=== PATIENT | female | born 1975 ===

== ENCOUNTER 2022-02-10 18:30 | Inpatient (IN) | payer SELFPAY ==
[2022-02-10] MEDS ORDERED: dexAMETHasone 4 MG/ML VIAL IV ONE (18:58)
[2022-02-10] MEDS ORDERED: ACETAMINOPHEN 325 MG TAB PO ONE (18:59)
[2022-02-10] MEDS ORDERED: SODIUM CHLORIDE 0.9% 1000 ML 2,000 ML IV ONE (18:59)
[2022-02-10] MEDS ORDERED: SODIUM CHLORIDE 0.9% 1000 ML 1,000 ML IV ONE (18:59)
[2022-02-10] MEDS ORDERED: ONDANSETRON 4 MG/2 ML INJ IV ONE (18:59)
--- NOTE | 2022-02-10 19:01 | Emergency Department Report ---
ED General Adult HPI - General Chief complaint: Weakness Stated complaint: DIARRHEA (X2DAYS) PUI?: Yes Time Seen by Provider: 02/10/22 18:48 Source: patient, EMS (Verbal report received from emergency medical services. E MS documentation not available at time of chart dictation ), RN notes reviewed Mode of arrival: Stretcher Limitations: No Limitations, Physical Limitation - History of Present Illness Initial comments: The patient was evaluated in the emergency department for symptoms described in the history of present illness. He/she was evaluated in the context of the global COVID-19 pandemic, which necessitated consideration that the patient might be at risk for infection with the virus that causes COVID-19. Instit utional protocols and algorithms that pertain to the evaluation of patients at risk for COVID-19 are in a state of rapid change based on information released by regulatory bodies including the CDC and federal and state organizations. These policies and algorithms were followed during the patient's care in the emergency department. Please note that these policies, procedures and recommendations changed on a rapid basis. The patient is a 46-year-old female, who lives in [place], who denies chronic medical conditions, who reports that she is not , who reports being vaccinated against COVID-19, who is currently traveling to [place] (reports that she is [place] and has lived in the states for 7 years), presenting to the ER via EMS. History obtained mostly from EMS. EMS reports the patient is weak, and hypotensive in the field, with a blood pressure in the 70s, and was also found t o be hypoxic to 90%. The patient endorses generalized weakness, body aches, and diarrhea. No urinary symptoms. No recent antibiotic use. 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 -: days(s) Consistency: constant Improves with: rest Worsens with: movement - Related Data Allergies Allergy/AdvReac Type Severity Reaction Status Date / Time No Known Allergies Allergy Verified 02/10/22 18:36 ED Review of Systems ROS: Stated complaint: DIARRHEA (X2DAYS) Other details as noted in HPI Constitutional: malaise, weakness Respiratory: shortness of breath Gastrointestinal: abdominal pain, diarrhea Genitourinary: denies: dysuria Musculoskeletal: myalgia Neurological: weakness ED Physical Exam - General Limitations: Physical Limitation General appearance: alert, anxious, in distress - Head Head exam: Present: atraumatic, normocephalic - Eye Eye exam: Present: normal appearance, EOMI. Absent: nystagmus - ENT ENT exam: Present: normal exam, normal orophraynx, mucous membranes moist, normal external ear exam - Neck Neck exam: Present: normal inspection, full ROM. Absent: tenderness, menin gismus - Respiratory Respiratory exam: Present: respiratory distress, other (Pulmonary auscultation not performed secondary to lack of disposable stethoscope). Absent: stridor - Cardiovascular Cardiovascular Exam: Present: other (Cardiac auscultation not performed secondary to lack of disposable stethoscope). Absent: JVD - GI/Abdominal GI/Abdominal exam: Present: soft. Absent: distended, tenderness, guarding, rebound, rigid, pulsatile mass - Extremities Exam Extremities exam: Present: normal inspection, other (2+ pulses noted in the bi lateral upper and lower extremities. There is no palpable cord. negative Homans sign. Muscular compartments are soft. The pelvis is stable.). Absent: pedal edema, calf tenderness - Back Exam Back exam: Present: normal inspection. Absent: tenderness, CVA tenderness (R), CVA tenderness (L), paraspinal tenderness, vertebral tenderness - Neurological Exam Neurological exam: Present: alert, other (No facial droop. Tongue midline. Extraocular movements intact bilaterally. Facial sensation intact to light touch in V1, V2, V3 distribution bilaterally. 5 and a 5 strength in 4 extremities. Sensation intact to light touch in 4 extremities.) - Psychiatric Psychiatric exam: Present: anxious - Skin Skin exam: Present: warm, dry, intact, normal color. Absent: rash ED Course Vital Signs 02/10/22 02/10/22 02/10/22 18:33 18:37 21:18 Temperature 97 F L 97.8 F Pulse Rate 66 73 Respiratory 24 19 Rate Blood Pressure 70/37 100/80 [Left] O2 Sat by Pulse 90 95 100 Oximetry 02/10/22 21:21 Temperature Pulse Rate Respiratory 19 Rate Blood Pressure [Left] O2 Sat by Pulse 100 Oximetry - Reevaluation(s) Reevaluation #1: 02/10/22 19:22 Differential diagnosis, including but not limited to: Pneumonia, UTI, COVID, electrolyte derangement, dehydration Assessment and plan: 46-year-old female, presenting with hypoxia, diarrhea, hypotension, very suspicious for COVID. Place patient in isolation. Start IV fluids and steroids empirically. Place patient on supplemental oxygen. Obtain x-ray of the chest, and appropriate laboratory studies. Have recommended admission to the medical service. The patient endorses understanding. Reassess after initial diagnostics have resulted. Blood pressure currently 97 systolic. 02/10/22 20:04 Lactic acid of 3. Suspect that this is secondary to type II lactic acidosis, likely secondary to probable viral syndrome. However, will cover with antibiotics. We will admit to the hospital team. Current hospitalist, not able to accept any additional admissions. We will therefore admit to the nocturnal hospitalist team 02/10/22 20:05 Blood pressure improved, systolic 120. 02/10/22 21:34 Dr Main Marino to admit to [facility] ED Medical Decision Making - Lab Data Result diagrams: 02/10/22 19:33 02/10/22 19:33 Vital Signs 02/10/22 02/10/22 18:33 18:37 Temperature 97 F L Pulse Rate 66 Respiratory 24 Rate Blood Pressure 70/37 [Left] O2 Sat by Pulse 90 95 Oximetry Lab Results 02/10/22 02/10/22 02/10/22 Range/Units 19:00 19:33 19:33 Sodium 139 (137-145) mmol/L Potassium 3.7 (3.6-5.0) mmol/L Chloride 106.1 (98-107) mmol/L Carbon Dioxide 19 L (22-30) mmol/L Anion Gap 18 mmol/L BUN 11 (7-17) mg/dL Creatinine 0.8 (0.6-1.2) mg/dL Estimated GFR > 60 ml/min BUN/Creatinine Ratio 14 % Glucose 161 H (65-100) mg/dL Lactic Acid 3.00 H* (0.7-2.0) mmol/L Calcium 11.0 H (8.4-10.2) mg/dL Total Bilirubin 0.20 (0.1-1.2) mg/dL AST 15 (5-40) units/L ALT 15 (7-56) units/L Alkaline Phosphatase 77 (35-129) units/L Lactate Dehydrogenase 142 (91-180) units/L Total Creatine Kinase 54 (30-135) units/L Troponin T < 0.010 (0.00-0.029) ng/mL Total Protein 6.9 (6.3-8.2) g/dL Albumin 4.6 (3.9-5) g/dL Albumin/Globulin Ratio 2.0 % - Radiology Data Radiology results: report reviewed, image reviewed CHEST 1 VIEW 02/10/2022 6:31 PM INDICATION / CLINICAL INFORMATION: Acute hypoxic respiratory failure. COMPARISON: None available. FINDINGS: SUPPORT DEVICES: None. HEART / MEDIASTINUM: No significant abnormality. LUNGS / PLEURA: No significant pulmonary or pleural abnormality. No pneumothorax. ADDITIONAL FINDINGS: No significant additional findings. IMPRESSION: No acute abnormality. Signer Name: Vicente Anglin MD Signed: 02/10/2022 6:33 PM Workstation Name: [id number] Critical Care Time: Yes Critical care time in (mins) excluding proc time.: 35 Critical care attestation.: If time is entered above; I have spent that time in minutes in the direct care of this critically ill patient, excluding procedure time. ED Disposition Clinical Impression: Acute respiratory failure with hypoxia, Diarrhea, Hypotension, Suspected COVID- 19 virus infection, SIRS (systemic inflammatory response syndrome) Disposition: ADMITTED INPATIENT Is pt being admited?: Yes Does the pt Need Aspirin: No Condition: Fair
--- NOTE | 2022-02-10 19:37 | XRay Report ---
CHEST 1 VIEW 02/10/2022 6:31 PM INDICATION / CLINICAL INFORMATION: Acute hypoxic respiratory failure. COMPARISON: None available. FINDINGS: SUPPORT DEVICES: None. HEART / MEDIASTINUM: No significant abnormality. LUNGS / PLEURA: No significant pulmonary or pleural abnormality. No pneumothorax. ADDITIONAL FINDINGS: No significant additional findings. IMPRESSION: No acute abnormality. Signer Name: Vicente Anglin MD Signed: 02/10/2022 7:33 PM Workstation Name: [id number]
[2022-02-10 20:01] LABS: Alanine Aminotransferase 15 units/L (7-56); Albumin 4.6 g/dL (3.9-5); BUN/Creatinine Ratio 14; Blood Urea Nitrogen 11 mg/dL (7-17); Hemolysis Index 12
[2022-02-10] MEDS ORDERED: metroNIDAZOLE/NS 500 MG/100 ML 500 MG/100 ML BAG IV ONE (20:03)
[2022-02-10 20:07] LABS: Partial Thromboplastin Time 24.7 Sec. (24.2-36.6)
[2022-02-10 20:34] LABS: Hematocrit 50.9 % (30.3-42.9); Hemoglobin 16.7 gm/dl (10.1-14.3); Mean Corpuscular HGB Conc 33 % (30-34); Mean Corpuscular Volume 95 fl (79-97); Platelet Count 355 K/mm3 (140-440); Red Blood Count 5.36 M/mm3 (3.65-5.03); Red Cell Distribution Width 13.4 % (13.2-15.2)
[2022-02-10] MEDS ORDERED: MORPHINE 4 MG/1 ML INJ IV PRN (21:56)
[2022-02-10] MEDS ORDERED: MORPHINE 2 MG/1 ML INJ IV PRN (21:56)
[2022-02-10] MEDS ORDERED: MAGNESIUM HYDROXIDE (MOM) ORAL LIQD UDC PO PRN (21:56)
[2022-02-10] MEDS ORDERED: ACETAMINOPHEN 325 MG TAB PO PRN (21:56)
[2022-02-10] MEDS ORDERED: ONDANSETRON 4 MG/2 ML INJ IV PRN (21:56)
--- NOTE | 2022-02-10 22:09 | History and Physical Report ---
History of Present Illness Date of examination: 02/10/22 Date of admission: 02/10/2022 Chief complaint: Genralized weakness Hypotension History of present illness: 46-year-old female without any significant past medical problem visiting from [place] presenting to the emergency room today via EMS with complaints of generalized weakness, nausea and vomiting, diarrhea and hypotension . Most of the history was gotten from the ER staff. Patient was said to have had an oxygen saturation of about 90%. Patient has denied any fever or chills, no chest pain, no cough. She denies any hematuria or dysuria. She has been fully vaccinated against COVID-19. She is said to be traveling to [place] from [place]. Work-up in the emergency room today, labs are significant for slight leukocytosis of 13.1, lactic acid of 3.0. Chest x-ray shows no acute findings. Urinalysis was unremarkable. Patient had received IV fluid in the emergency room with significant improvement in her blood pressure. She has also been placed on oxygen by nasal cannula with improvement to the low oxygen saturation. She has been admitted for acute respiratory failure, gastroenteritis and lactic acidosis. Past History Past Medical History: No medical history Past Surgical History: No surgical history Social history: no significant social history Family history: no significant family history Medications and Allergies Allergies Allergy/AdvReac Type Severity Reaction Status Date / Time No Known Allergies Allergy Verified 02/10/22 18:36 Review of Systems Constitutional: weakness, no fever, no chills Ears, nose, mouth and throat: no nasal congestion, no sore throat Cardiovascular: no chest pain, no palpitations Respiratory: shortness of breath, no cough Gastrointestinal: nausea, vomiting, diarrhea Genitourinary Female: no pelvic pain, no flank pain, no dysuria, no hematuria Musculoskeletal: no neck pain, no low back pain Integumentary: no rash, no pruritis Neurological: no headaches, no confusion Psychiatric: no anxiety, no depression Endocrine: no polyphagia, no polydipsia, no polyuria, no nocturia Exam - Constitutional Vitals: Temp Pulse Resp BP Pulse Ox 97.8 F 73 19 100/80 100 02/10/22 21:18 02/10/22 21:18 02/10/22 21:21 02/10/22 21:18 02/10/22 21:21 General appearance: Present: no acute distress, well-nourished - EENT Eyes: Present: PERRL, EOM intact. Absent: scleral icterus ENT: hearing intact, clear oral mucosa, dentition normal - Neck Neck: Present: supple, normal ROM - Respiratory Respiratory effort: normal Respiratory: bilateral: CTA - Cardiovascular Rhythm: regular Heart Sounds: Present: S1 & S2. Absent: gallop, systolic murmur, diastolic murmur, rub, click - Extremities Extremities: no ischemia, pulses intact, pulses symmetrical, No edema, normal temperature, normal color, Full ROM Peripheral Pulses: within normal limits - Abdominal General gastrointestinal: Present: soft, non-tender, non-distended, normal bowel sounds. Absent: mass - Integumentary Integumentary: Present: clear, warm, dry, normal turgor. Absent: rash - Musculoskeletal Musculoskeletal: strength equal bilaterally - Psychiatric Psychiatric: appropriate mood/affect, intact judgment & insight, memory intact, cooperative - Neurologic Neurologic: CNII-XII intact, no focal deficits, moves all extremities HEART Score - HEART Score Troponin: Troponin T < 0.010 ng/mL (0.00-0.029) 02/10/22 19:33 Results - Labs CBC & Chem 7: 02/10/22 19:33 02/10/22 19:33 Labs: Abnormal lab results 02/10/22 02/10/22 02/10/22 Range/Units 19:33 19:33 19:33 WBC 13.1 H (4.5-11.0) K/mm3 RBC 5.36 H (3.65-5.03) M/mm3 Hgb 16.7 H (10.1-14.3) gm/dl Hct 50.9 H (30.3-42.9) % D-Dimer 974.33 H (0-234) ng/mlDDU Carbon Dioxide 19 L (22-30) mmol/L Glucose 161 H (65-100) mg/dL Lactic Acid (0.7-2.0) mmol/L Calcium 11.0 H (8.4-10.2) mg/dL 02/10/22 Range/Units 19:33 WBC (4.5-11.0) K/mm3 RBC (3.65-5.03) M/mm3 Hgb (10.1-14.3) gm/dl Hct (30.3-42.9) % D-Dimer (0-234) ng/mlDDU Carbon Dioxide (22-30) mmol/L Glucose (65-100) mg/dL Lactic Acid 3.00 H* (0.7-2.0) mmol/L Calcium (8.4-10.2) mg/dL Assessment and Plan - Patient Problems (1) Acute respiratory failure with hypoxia Current Visit: Yes Status: Acute Plan to address problem: Etiology is unclear. Patient has been started on empiric IV antibiotics and also placed on oxygen by nasal cannula. We will keep O2 saturation greater or equal to 92%. Patient is also being screened for COVID-19. We will request pulmonology evaluation. (2) Diarrhea Current Visit: Yes Status: Acute Plan to address problem: Etiology is unclear. Patient placed on IV fluid. She has also been placed on empiric IV antibiotics for possible underlying infection. (3) Hypotension Current Visit: Yes Status: Acute Plan to address problem: Possibly secondary to volume loss. Placed on IV fluid. We will monitor vital signs closely. (4) Suspected COVID-19 virus infection Current Visit: Yes Status: Acute Plan to address problem: Will await COVID-19 testing. (5) DVT prophylaxis Current Visit: Yes Status: Acute Plan to address problem: Patient placed on subcutaneous heparin. (6) Full code status Current Visit: Yes Status: Acute Plan to address problem: Patient is full code.
[2022-02-10 22:45] LABS: Bilirubin,Urine NEG (Negative); Blood,Urine LG (Negative); Color,Urine Straw (Yellow); Hyaline Casts,Urine 8 /LPF; Mucus,Urine FEW /HPF; Protein,Urine <15 mg/dL mg/dL (Negative); Urobilinogen,Urine < 2.0 mg/dL (<2.0)
[2022-02-11] MEDS: metroNIDAZOLE/NS 500 MG/100 ML 500 MG/100 ML BAG IV SCH ×3 (03:09→20:15)
[2022-02-11] MEDS: SODIUM CHLORIDE 0.9% 1000 ML 1,000 ML IV SCH ×3 (03:10→20:15)
[2022-02-11] MEDS: HEPARIN 5,000 UNIT/1 ML VIAL SUB-Q SCH ×2 (06:22→21:01)
[2022-02-11 07:38] LABS: Basophils % (Auto) 0.4 % (0.0-1.8); Eosinophils % (Auto) 0.1 % (0.0-4.3); Hematocrit 39.3 % (30.3-42.9); Lymphocytes # (Auto) 0.9 K/mm3 (1.2-5.4); Lymphocytes % (Auto) 8.5 % (13.4-35.0); Mean Corpuscular HGB Conc 33 % (30-34); Mean Corpuscular Volume 94 fl (79-97); Monocytes # (Auto) 0.3 K/mm3 (0.0-0.8); Monocytes % (Auto) 2.4 % (0.0-7.3); Platelet Count 265 K/mm3 (140-440); Red Blood Count 4.18 M/mm3 (3.65-5.03); Red Cell Distribution Width 13.3 % (13.2-15.2)
[2022-02-11 07:55] LABS: Blood Urea Nitrogen 6 mg/dL (7-17); Calcium 10.1 mg/dL (8.4-10.2); Hemolysis Index 7
[2022-02-11 07:56] LABS: BUN/Creatinine Ratio 12
--- NOTE | 2022-02-11 09:07 | Progress Note ---
Assessment and Plan Assessment and plan: The patient is a 46-year-old female, who lives in [place], who denies chronic medical conditions, who reports that she is not , who reports being vaccinated against COVID-19, who is currently traveling to [place] (reports that she is [place] and has lived in the states for 7 years), presenting to the ER via EMS. History obtained mostly from EMS. EMS reports the patient is weak, and hypotensive in the field, with a blood pressure in the 70s, and was also found to be hypoxic to 90%. The patient endorses generalized weakness, body aches, and diarrhea. Acute hypoxic respiratory failure Acute gastroenteritis Diarrhea Sepsis. The patient meets criteria given the tachypnea, leukocytosis, hypotension and diagnosis of gastroenteritis. 02/11/2022. Patient with hypoxia with no clear etiology. Given the elevated D- dimer, we will obtain a CT of the chest. Chest x-ray negative. Follow-up COVID PCR. Check stool studies to rule out infectious etiology for gastroenteritis. History Interval history: No new issues overnight Hospitalist Physical - Constitutional Vitals: Temp Pulse Resp BP Pulse Ox 97.9 F 63 18 110/55 99 02/11/22 03:55 02/11/22 03:55 02/11/22 03:55 02/11/22 03:55 02/11/22 03:55 General appearance: Present: no acute distress, well-nourished - EENT Eyes: Present: PERRL, EOM intact ENT: hearing intact, clear oral mucosa, dentition normal - Neck Neck: Present: supple, normal ROM - Respiratory Respiratory effort: normal Respiratory: bilateral: CTA - Cardiovascular Rhythm: regular Heart Sounds: Present: S1 & S2. Absent: gallop, rub - Extremities Extremities: no ischemia, No edema, Full ROM - Abdominal General gastrointestinal: soft, non-tender, non-distended, normal bowel sounds - Integumentary Integumentary: Present: clear, warm, dry - Neurologic Neurologic: CNII-XII intact, moves all extremities HEART Score - HEART Score Troponin: Troponin T < 0.010 ng/mL (0.00-0.029) 02/10/22 19:33 Results - Labs CBC & Chem 7: 02/11/22 07:09 02/11/22 07:09 Labs: Laboratory Last Values WBC 10.8 K/mm3 (4.5-11.0) 02/11/22 07:09 RBC 4.18 M/mm3 (3.65-5.03) 02/11/22 07:09 Hgb 13.0 gm/dl (10.1-14.3) D 02/11/22 07:09 Hct 39.3 % (30.3-42.9) D 02/11/22 07:09 MCV 94 fl (79-97) 02/11/22 07:09 MCH 31 pg (28-32) 02/11/22 07:09 MCHC 33 % (30-34) 02/11/22 07:09 RDW 13.3 % (13.2-15.2) 02/11/22 07:09 Plt Count 265 K/mm3 (140-440) 02/11/22 07:09 Lymph % (Auto) 8.5 % (13.4-35.0) L 02/11/22 07:09 [place] % (Auto) 2.4 % (0.0-7.3) 02/11/22 07:09 Eos % (Auto) 0.1 % (0.0-4.3) 02/11/22 07:09 Baso % (Auto) 0.4 % (0.0-1.8) 02/11/22 07:09 Lymph # (Auto) 0.9 K/mm3 (1.2-5.4) L 02/11/22 07:09 [place] # (Auto) 0.3 K/mm3 (0.0-0.8) 02/11/22 07:09 Eos # (Auto) 0.0 K/mm3 (0.0-0.4) 02/11/22 07:09 Baso # (Auto) 0.0 K/mm3 (0.0-0.1) 02/11/22 07:09 Seg Neutrophils % 88.6 % (40.0-70.0) H 02/11/22 07:09 Seg Neutrophils # 9.6 K/mm3 (1.8-7.7) H 02/11/22 07:09 APTT 24.7 Sec. (24.2-36.6) 02/10/22 19:33 D-Dimer 974.33 ng/mlDDU (0-234) H 02/10/22 19:33 Sodium 141 mmol/L (137-145) 02/11/22 07:09 Potassium 4.3 mmol/L (3.6-5.0) 02/11/22 07:09 Chloride 111.9 mmol/L (98-107) H 02/11/22 07:09 Carbon Dioxide 20 mmol/L (22-30) L 02/11/22 07:09 Anion Gap 13 mmol/L 02/11/22 07:09 BUN 6 mg/dL (7-17) L 02/11/22 07:09 Creatinine 0.5 mg/dL (0.6-1.2) L 02/11/22 07:09 Estimated GFR > 60 ml/min 02/11/22 07:09 BUN/Creatinine Ratio 12 % 02/11/22 07:09 Glucose 123 mg/dL (65-100) H 02/11/22 07:09 Lactic Acid 1.80 mmol/L (0.7-2.0) 02/10/22 22:51 Calcium 10.1 mg/dL (8.4-10.2) 02/11/22 07:09 Ferritin 37.5 ng/mL (10.0-200.0) 02/10/22 19:00 Total Bilirubin 0.20 mg/dL (0.1-1.2) 02/10/22 19:33 AST 15 units/L (5-40) 02/10/22 19:33 ALT 15 units/L (7-56) 02/10/22 19:33 Alkaline Phosphatase 77 units/L (35-129) 02/10/22 19:33 Lactate Dehydrogenase 142 units/L (91-180) 02/10/22 19:33 Total Creatine Kinase 54 units/L (30-135) 02/10/22 19:00 Troponin T < 0.010 ng/mL (0.00-0.029) 02/10/22 19:33 C-Reactive Protein 0.30 mg/dL (0.00-1.30) 02/10/22 19:33 Total Protein 6.9 g/dL (6.3-8.2) 02/10/22 19:33 Albumin 4.6 g/dL (3.9-5) 02/10/22 19:33 Albumin/Globulin Ratio 2.0 % 02/10/22 19:33 HCG, Quant < 2 mIU/mL (0-4) 02/10/22 19:33 Urine Color Straw (Yellow) 02/10/22 22:22 Urine Turbidity Clear (Clear) 02/10/22 22:22 Urine pH 5.0 (5.0-7.0) 02/10/22 22:22 Ur Specific [place] 1.005 (1.003-1.030) 02/10/22 22:22 Urine Protein <15 mg/dl mg/dL (Negative) 02/10/22 22:22 Urine Glucose (UA) Neg mg/dL (Negative) 02/10/22 22:22 Urine Ketones Neg mg/dL (Negative) 02/10/22 22:22 Urine Blood Lg (Negative) 02/10/22 22:22 Urine Nitrite Neg (Negative) 02/10/22 22:22 Urine Bilirubin Neg (Negative) 02/10/22 22:22 Urine Urobilinogen < 2.0 mg/dL (<2.0) 02/10/22 22:22 Ur Leukocyte Esterase Neg (Negative) 02/10/22 22:22 Urine WBC (Auto) 3.0 /HPF (0.0-6.0) 02/10/22 22:22 Urine RBC (Auto) 3.0 /HPF (0.0-6.0) 02/10/22 22:22 U Epithel Cells (Auto) 1.0 /HPF (0-13.0) 02/10/22 22:22 Hyaline Casts 8 /LPF 02/10/22 22:22 Urine Mucus Few /HPF 02/10/22 22:22 Microbiology: Microbiology 02/10/22 Unknown Peripheral/Venous Blood Culture - Preliminary Culture in Progress 02/10/22 Unknown Peripheral/Venous Blood Culture - Preliminary Culture in Progress Active Medications - Current Medications Current Medications: Generic Name Dose Route Start Last Admin Trade Name Freq PRN Reason Stop Dose Admin Acetaminophen 650 mg 02/10/22 21:56 Acetaminophen 325 Mg Tab PO Q4H PRN Pain MILD(1-3)/Fever >100.5/SONI Heparin Sodium (Porcine) 5,000 unit 02/11/22 06:00 02/11/22 06:22 Heparin 5,000 Unit/1 Ml Vial SUB-Q 5,000 unit Q8HR HUSAM Administration Sodium Chloride 1,000 mls @ 125 mls/hr 02/10/22 22:00 02/11/22 03:10 Nacl 0.9% 1000 Ml IV 125 mls/hr DIRECT HUSAM Administration Levofloxacin/Dextrose 750 mg in 150 mls @ 100 mls/hr 02/11/22 20:00 Levaquin 750mg/150ml IV 01/16/23 19:59 Q24H HUSAM Protocol Metronidazole 500 mg in 100 mls @ 100 mls/hr 02/11/22 04:00 02/11/22 03:09 Flagyl 500 Mg/100 Ml IV 100 mls/hr Q8H HUSAM Administration Protocol Magnesium Hydroxide 30 ml 02/10/22 21:56 Magnesium Hydroxide (Mom) Oral Liqd Udc PO Q4H PRN Constipation Morphine Sulfate 2 mg 02/10/22 21:56 Morphine 2 Mg/1 Ml Inj IV Q4H PRN Pain, Moderate (4-6) Morphine Sulfate 4 mg 02/10/22 21:56 Morphine 4 Mg/1 Ml Inj IV Q4H PRN Pain , Severe (7-10) Ondansetron HCl 4 mg 02/10/22 21:56 Ondansetron 4 Mg/2 Ml Inj IV Q8H PRN Nausea And Vomiting Sodium Chloride 10 ml 02/10/22 22:00 02/10/22 22:23 Sodium Chloride 0.9% 10 Ml Flush Syringe IV 10 ml BID HUSAM Administration Sodium Chloride 10 ml 02/10/22 21:56 Sodium Chloride 0.9% 10 Ml Flush Syringe IV PRN PRN LINE FLUSH
[2022-02-12] MEDS: metroNIDAZOLE/NS 500 MG/100 ML 500 MG/100 ML BAG IV SCH ×3 (04:10→21:42)
[2022-02-12] MEDS: SODIUM CHLORIDE 0.9% 1000 ML 1,000 ML IV SCH ×2 (04:11→21:43)
[2022-02-12] MEDS: HEPARIN 5,000 UNIT/1 ML VIAL SUB-Q SCH ×3 (05:36→23:23)
--- NOTE | 2022-02-12 10:21 | Progress Note ---
Assessment and Plan Assessment and plan: The patient is a 46-year-old female, who lives in [place], who denies chronic medical conditions, who reports that she is not , who reports being vaccinated against COVID-19, who is currently traveling to [place] (reports that she is [place] and has lived in the states for 7 years), presenting to the ER via EMS. History obtained mostly from EMS. EMS reports the patient is weak, and hypotensive in the field, with a blood pressure in the 70s, and was also found to be hypoxic to 90%. The patient endorses generalized weakness, body aches, and diarrhea. Acute hypoxic respiratory failure Acute gastroenteritis Diarrhea Sepsis. The patient meets criteria given the tachypnea, leukocytosis, hypotension and diagnosis of gastroenteritis. 02/11/2022. Patient with hypoxia with no clear etiology. Given the elevated D- dimer, we will obtain a CT of the chest. Chest x-ray negative. Follow-up COVID PCR. Check stool studies to rule out infectious etiology for gastroenteritis. 02/12/2022. Follow-up CTA of chest to rule out PE. Oxygen saturation appears to be back to baseline with room air sats greater than 92%. Patient denies any further diarrhea. Leukocytosis and lactic acidosis has resolved. Continue empiric antibiotics. Blood and urine cultures remain negative. Anticipate di scharge in a.m. if CTA negative and cultures continue to remain negative History Interval history: No new issues overnight Hospitalist Physical - Constitutional Vitals: Temp Pulse Resp BP Pulse Ox 98.6 F 71 20 128/75 95 02/12/22 04:44 02/12/22 04:44 02/12/22 04:44 02/12/22 04:44 02/12/22 04:44 General appearance: Present: no acute distress, well-nourished - EENT Eyes: Present: PERRL, EOM intact ENT: hearing intact, clear oral mucosa, dentition normal - Neck Neck: Present: supple, normal ROM - Respiratory Respiratory effort: normal Respiratory: bilateral: CTA - Cardiovascular Rhythm: regular Heart Sounds: Present: S1 & S2. Absent: gallop, rub - Extremities Extremities: no ischemia, No edema, Full ROM - Abdominal General gastrointestinal: soft, non-tender, non-distended, normal bowel sounds - Integumentary Integumentary: Present: clear, warm, dry - Neurologic Neurologic: CNII-XII intact, moves all extremities HEART Score - HEART Score Troponin: Troponin T < 0.010 ng/mL (0.00-0.029) 02/10/22 19:33 Results - Labs CBC & Chem 7: 02/11/22 07:09 02/11/22 07:09 Labs: Laboratory Last Values WBC 10.8 K/mm3 (4.5-11.0) 02/11/22 07:09 RBC 4.18 M/mm3 (3.65-5.03) 02/11/22 07:09 Hgb 13.0 gm/dl (10.1-14.3) D 02/11/22 07:09 Hct 39.3 % (30.3-42.9) D 02/11/22 07:09 MCV 94 fl (79-97) 02/11/22 07:09 MCH 31 pg (28-32) 02/11/22 07:09 MCHC 33 % (30-34) 02/11/22 07:09 RDW 13.3 % (13.2-15.2) 02/11/22 07:09 Plt Count 265 K/mm3 (140-440) 02/11/22 07:09 Lymph % (Auto) 8.5 % (13.4-35.0) L 02/11/22 07:09 Ceiba % (Auto) 2.4 % (0.0-7.3) 02/11/22 07:09 Eos % (Auto) 0.1 % (0.0-4.3) 02/11/22 07:09 Baso % (Auto) 0.4 % (0.0-1.8) 02/11/22 07:09 Lymph # (Auto) 0.9 K/mm3 (1.2-5.4) L 02/11/22 07:09 Ceiba # (Auto) 0.3 K/mm3 (0.0-0.8) 02/11/22 07:09 Eos # (Auto) 0.0 K/mm3 (0.0-0.4) 02/11/22 07:09 Baso # (Auto) 0.0 K/mm3 (0.0-0.1) 02/11/22 07:09 Seg Neutrophils % 88.6 % (40.0-70.0) H 02/11/22 07:09 Seg Neutrophils # 9.6 K/mm3 (1.8-7.7) H 02/11/22 07:09 APTT 24.7 Sec. (24.2-36.6) 02/10/22 19:33 D-Dimer 974.33 ng/mlDDU (0-234) H 02/10/22 19:33 Sodium 141 mmol/L (137-145) 02/11/22 07:09 Potassium 4.3 mmol/L (3.6-5.0) 02/11/22 07:09 Chloride 111.9 mmol/L (98-107) H 02/11/22 07:09 Carbon Dioxide 20 mmol/L (22-30) L 02/11/22 07:09 Anion Gap 13 mmol/L 02/11/22 07:09 BUN 6 mg/dL (7-17) L 02/11/22 07:09 Creatinine 0.5 mg/dL (0.6-1.2) L 02/11/22 07:09 Estimated GFR > 60 ml/min 02/11/22 07:09 BUN/Creatinine Ratio 12 % 02/11/22 07:09 Glucose 123 mg/dL (65-100) H 02/11/22 07:09 Lactic Acid 1.80 mmol/L (0.7-2.0) 02/10/22 22:51 Calcium 10.1 mg/dL (8.4-10.2) 02/11/22 07:09 Ferritin 37.5 ng/mL (10.0-200.0) 02/10/22 19:00 Total Bilirubin 0.20 mg/dL (0.1-1.2) 02/10/22 19:33 AST 15 units/L (5-40) 02/10/22 19:33 ALT 15 units/L (7-56) 02/10/22 19:33 Alkaline Phosphatase 77 units/L (35-129) 02/10/22 19:33 Lactate Dehydrogenase 142 units/L (91-180) 02/10/22 19:33 Total Creatine Kinase 54 units/L (30-135) 02/10/22 19:00 Troponin T < 0.010 ng/mL (0.00-0.029) 02/10/22 19:33 C-Reactive Protein 0.30 mg/dL (0.00-1.30) 02/10/22 19:33 Total Protein 6.9 g/dL (6.3-8.2) 02/10/22 19:33 Albumin 4.6 g/dL (3.9-5) 02/10/22 19:33 Albumin/Globulin Ratio 2.0 % 02/10/22 19:33 HCG, Quant < 2 mIU/mL (0-4) 02/10/22 19:33 Urine Color Straw (Yellow) 02/10/22 22: Urine Turbidity Clear (Clear) 02/10/22 22: Urine pH 5.0 (5.0-7.0) 02/10/22 22: Ur Specific Worth 1.005 (1.003-1.030) 02/10/22 22: Urine Protein <15 mg/dl mg/dL (Negative) 02/10/22 22:22 Urine Glucose (UA) Neg mg/dL (Negative) 02/10/22 22: Urine Ketones Neg mg/dL (Negative) 02/10/22 22:22 Urine Blood Lg (Negative) 02/10/22 22:22 Urine Nitrite Neg (Negative) 02/10/22 22:22 Urine Bilirubin Neg (Negative) 02/10/22 22:22 Urine Urobilinogen < 2.0 mg/dL (<2.0) 02/10/22 22:22 Ur Leukocyte Esterase Neg (Negative) 02/10/22 22:22 Urine WBC (Auto) 3.0 /HPF (0.0-6.0) 02/10/22 22:22 Urine RBC (Auto) 3.0 /HPF (0.0-6.0) 02/10/22 22:22 U Epithel Cells (Auto) 1.0 /HPF (0-13.0) 02/10/22 22:22 Hyaline Casts 8 /LPF 02/10/22 22:22 Urine Mucus Few /HPF 02/10/22 22:22 Microbiology: Microbiology 02/10/22 22:22 Urine,Clean Catch Urine Culture - Preliminary NO GROWTH AFTER 24 HOURS 02/10/22 Unknown Peripheral/Venous Blood Culture - Preliminary NO GROWTH AFTER 24 HOURS 02/10/22 Unknown Peripheral/Venous Blood Culture - Preliminary NO GROWTH AFTER 24 HOURS Dias/IV: Voiding Method Toilet Active Medications - Current Medications Current Medications: Generic Name Dose Route Start Last Admin Trade Name Gonzaloq PRN Reason Stop Dose Admin Acetaminophen 650 mg 02/10/22 21:56 Acetaminophen 325 Mg Tab PO Q4H PRN Pain MILD(1-3)/Fever >100.5/SONI Heparin Sodium (Porcine) 5,000 unit 02/11/22 06:00 02/12/22 05:36 Heparin 5,000 Unit/1 Ml Vial SUB-Q 5,000 unit Q8HR HUSAM Administration Sodium Chloride 1,000 mls @ 125 mls/hr 02/10/22 22:00 02/12/22 04:11 Nacl 0.9% 1000 Ml IV 125 mls/hr DIRECT HUSAM Administration Levofloxacin/Dextrose 750 mg in 150 mls @ 100 mls/hr 02/11/22 20:00 02/11/22 20:15 Levaquin 750mg/150ml IV 01/16/23 19:59 100 mls/hr Q24H HUSAM Administration Protocol Metronidazole 500 mg in 100 mls @ 100 mls/hr 02/11/22 04:00 02/12/22 04:10 Flagyl 500 Mg/100 Ml IV 100 mls/hr Q8H HUSAM Administration Protocol Magnesium Hydroxide 30 ml 02/10/22 21:56 Magnesium Hydroxide (Mom) Oral Liqd Udc PO Q4H PRN Constipation Morphine Sulfate 2 mg 02/10/22 21:56 Morphine 2 Mg/1 Ml Inj IV Q4H PRN Pain, Moderate (4-6) Morphine Sulfate 4 mg 02/10/22 21:56 Morphine 4 Mg/1 Ml Inj IV Q4H PRN Pain , Severe (7-10) Ondansetron HCl 4 mg 02/10/22 21:56 Ondansetron 4 Mg/2 Ml Inj IV Q8H PRN Nausea And Vomiting Sodium Chloride 10 ml 02/10/22 22:00 02/11/22 21:01 Sodium Chloride 0.9% 10 Ml Flush Syringe IV 10 ml BID HUSAM Administration Sodium Chloride 10 ml 02/10/22 21:56 Sodium Chloride 0.9% 10 Ml Flush Syringe IV PRN PRN LINE FLUSH
--- NOTE | 2022-02-12 10:51 | Consultation ---
History of Present Illness Consult date: 02/12/22 Requesting physician: MAYCOL ANDRE Reason for consult: hypoxemia History of present illness: 46 y/o [place] Female from [place] who presented with generalized weakness, nausea vomiting and diarrhea. There was concern as her room air pulse ox was 90% presuming at rest that she was in acute respiratory failure. Pulmonary was consulted for this. Per report she is vaccinated against COVID 19 and her CXR on admission was negative. Her COVID 19 test is pending, assuming it was drawn yesterday. [facility] ordered a CTA which was done this am. I have reviewed but this is not the official read, I did not appreciate any pulmonary emboli. REmainder of the review is negative. Last documented sat on 2 liters was 99%. Past History Past Medical History: No medical history Past Surgical History: No surgical history Social history: no significant social history Family history: no significant family history Medications and Allergies Allergies Allergy/AdvReac Type Severity Reaction Status Date / Time No Known Allergies Allergy Verified 02/10/22 18:36 Active Meds: Active Medications Acetaminophen (Acetaminophen 325 Mg Tab) 650 mg PO Q4H PRN PRN Reason: Pain MILD(1-3)/Fever >100.5/SONI Heparin Sodium (Porcine) (Heparin 5,000 Unit/1 Ml Vial) 5,000 unit SUB-Q Q8HR HUSAM Last Admin: 02/12/22 05:36 Dose: 5,000 unit Sodium Chloride (Nacl 0.9% 1000 Ml) 1,000 mls @ 125 mls/hr IV DIRECT HUSAM Last Admin: 02/12/22 04:11 Dose: 125 mls/hr Levofloxacin/Dextrose (Levaquin 750mg/150ml) 750 mg in 150 mls @ 100 mls/hr IV Q24H HUSAM; Protocol Stop: 01/16/23 19:59 Last Admin: 02/11/22 20:15 Dose: 100 mls/hr Metronidazole (Flagyl 500 Mg/100 Ml) 500 mg in 100 mls @ 100 mls/hr IV Q8H HUSAM; Protocol Last Admin: 02/12/22 04:10 Dose: 100 mls/hr Magnesium Hydroxide (Magnesium Hydroxide (Mom) Oral Liqd Udc) 30 ml PO Q4H PRN PRN Reason: Constipation Morphine Sulfate (Morphine 2 Mg/1 Ml Inj) 2 mg IV Q4H PRN PRN Reason: Pain, Moderate (4-6) Morphine Sulfate (Morphine 4 Mg/1 Ml Inj) 4 mg IV Q4H PRN PRN Reason: Pain , Severe (7-10) Ondansetron HCl (Ondansetron 4 Mg/2 Ml Inj) 4 mg IV Q8H PRN PRN Reason: Nausea And Vomiting Sodium Chloride (Sodium Chloride 0.9% 10 Ml Flush Syringe) 10 ml IV BID HUSAM Last Admin: 02/11/22 21:01 Dose: 10 ml Sodium Chloride (Sodium Chloride 0.9% 10 Ml Flush Syringe) 10 ml IV PRN PRN PRN Reason: LINE FLUSH Physical Examination Vital signs: Vital Signs Temp Pulse Resp BP Pulse Ox 97 F L 66 24 70/37 90 02/10/22 18:33 02/10/22 18:33 02/10/22 18:33 02/10/22 18:33 02/10/22 18:33 Results - Laboratory Findings CBC and BMP: 02/11/22 07:09 02/11/22 07:09 PT/INR, D-dimer D-Dimer 974.33 ng/mlDDU (0-234) H 02/10/22 19:33 Abnormal lab findings: Abnormal Labs 02/10/22 02/10/22 02/10/22 19:33 19:33 19:33 WBC 13.1 H RBC 5.36 H Hgb 16.7 H Hct 50.9 H Lymph % (Auto) Lymph # (Auto) Seg Neutrophils % Seg Neutrophils # D-Dimer 974.33 H Chloride Carbon Dioxide 19 L BUN Creatinine Glucose 161 H Lactic Acid Calcium 11.0 H 02/10/22 02/11/22 02/11/22 19:33 07:09 07:09 WBC RBC Hgb Hct Lymph % (Auto) 8.5 L Lymph # (Auto) 0.9 L Seg Neutrophils % 88.6 H Seg Neutrophils # 9.6 H D-Dimer Chloride 111.9 H Carbon Dioxide 20 L BUN 6 L Creatinine 0.5 L Glucose 123 H Lactic Acid 3.00 H* Calcium - Diagnostic Findings Chest x-ray: image reviewed CT scan - chest: image reviewed Assessment and Plan 46 y/o female with room air sat of 90% who had generalized weaknes, nausea and diarrhea for several days prior to admission 1. Suggest stopping levaquin as I see nothing on CXR or CT concerning for infectious pulmonary process 2. Wean FIO2 to off for sats >88% 3. Agree with fluid resuscitation given presentation 4. No further recommendations from a pulmonary standpoint. Call if questions.
--- NOTE | 2022-02-12 11:31 | Cat Scan Report ---
CTA CHEST WITH CONTRAST INDICATION : elevated d-dimer, hypoxia OMNI 350 100 ML. TECHNIQUE: Axial imaging performed through the chest, with contrast bolus timing set to maximize opa cification of the pulmonary arteries. Sagittal and coronal reformatted images. 3-plane MIP reformatte d images were obtained. All CT scans at this location are performed using CT dose reduction for ALAR A by means of automated exposure control. Omnipaque 350 100 mL of intravenous contrast administered. COMPARISON: AP chest performed 2 days ago FINDINGS: Bolus: Contrast bolus is slightly limited with poor opacification of the distal small pulmonary francisca jing. PTE: No filling defect is present to suggest PTE. Mediastinum: Heart and great vessels appear normal. No pathologic mediastinal adenopathy. Lungs: The lungs are clear with no evidence for infiltrate, interstitial disease, pleural effusion o r pneumothorax. Bones: No significant abnormality. Upper abdomen: Limited imaging of the upper abdomen shows nothing acute. IMPRESSION: Negative for PTE. Clear lungs. Signer Name: Tino Tobin Jr, MD Signed: 02/12/2022 11:26 AM Workstation Name: [id number]
[2022-02-12 12:47] LABS: Basophils % (Auto) 0.3 % (0.0-1.8); Eosinophils # (Auto) 0.1 K/mm3 (0.0-0.4); Eosinophils % (Auto) 1.8 % (0.0-4.3); Hematocrit 34.7 % (30.3-42.9); Hemoglobin 11.6 gm/dl (10.1-14.3); Lymphocytes % (Auto) 38.3 % (13.4-35.0); Mean Corpuscular HGB Conc 33 % (30-34); Mean Corpuscular Volume 95 fl (79-97); Monocytes # (Auto) 0.4 K/mm3 (0.0-0.8); Monocytes % (Auto) 5.7 % (0.0-7.3); Platelet Count 224 K/mm3 (140-440); Red Blood Count 3.65 M/mm3 (3.65-5.03); Red Cell Distribution Width 13.4 % (13.2-15.2)
[2022-02-12 13:20] LABS: Blood Urea Nitrogen 7 mg/dL (7-17); Calcium 10.7 mg/dL (8.4-10.2); Hemolysis Index 5
[2022-02-12 13:22] LABS: BUN/Creatinine Ratio 14
[2022-02-13] MEDS: metroNIDAZOLE/NS 500 MG/100 ML 500 MG/100 ML BAG IV SCH (04:23)
[2022-02-13 06:13] VITALS: BP 110/47
[2022-02-13] MEDS: HEPARIN 5,000 UNIT/1 ML VIAL SUB-Q SCH (06:49)
[2022-02-13] MEDS: SODIUM CHLORIDE 0.9% 1000 ML 1,000 ML IV SCH (06:50)
--- NOTE | 2022-02-13 08:23 | Discharge Summary ---
Providers - Providers Date of Admission: 02/10/22 21:59 Date of discharge: 02/13/22 Attending physician: STEVE BARRETT 02/10/22 21:56 Consult to Physician [CONS] Routine Comment: Consulting Provider: ANDREA SUTTON Physician Instructions: Reason For Exam: Acute Resp. Failure,Hypoxia Primary care physician: [employer]IST Hospitalization Reason for admission: hypoxia Condition: Fair Hospital course: The patient is a 46-year-old female, who lives in [place], who denies chronic medical conditions, who reports that she is not , who reports being vaccinated against COVID-19, who is currently traveling to [place] (reports that she is [place] and has lived in the [facility] for 7 years), presenting to the ER via EMS. History obtained mostly from EMS. EMS reports the patient is weak, and hypotensive in the field, with a blood pressure in the 70s, and was also found to be hypoxic to 90%. The patient endorses generalized weakness, body aches, and diarrhea. The patient was admitted with diagnosis below: Acute hypoxic respiratory failure Acute gastroenteritis Diarrhea Sepsis. The patient meets criteria given the tachypnea, leukocytosis, hypotension and diagnosis of gastroenteritis. 02/11/2022. Patient with hypoxia with no clear etiology. Given the elevated D- dimer, we will obtain a CT of the chest. Chest x-ray negative. Follow-up COVID PCR. Check stool studies to rule out infectious etiology for gastroenteritis. 02/12/2022. Follow-up CTA of chest to rule out PE. Oxygen saturation appears to be back to baseline with room air sats greater than 92%. Patient denies any further diarrhea. Leukocytosis and lactic acidosis has resolved. Continue empiric antibiotics. Blood and urine cultures remain negative. Anticipate discharge in a.m. if CTA negative and cultures continue to remain negative 02/13/2022. CTA of the chest was found to be negative for PE. Pulmonary eval uated the patient and suggested stopping IV antibiotics as there was no infectious process noted. Gastroenteritis was likely viral and patient did receive doses of Levaquin with no need for further doses. No more diarrhea. Patient has received fluid resuscitation and is felt to have received maximal hospital benefit for discharge. Dedicated discharge time 35 minutes. Disposition: 30 STILL A PATIENT Final Discharge Diagnosis (Prints w/discharge instructions): Acute hypoxic respiratory failure. Acute gastroenteritis. Diarrhea. Sepsis. The patient meets criteria given the tachypnea, leukocytosis, hypotension and diagnosis of gastroenteritis. Core Measure Documentation - Palliative Care Palliative Care/ Comfort Measures: Not Applicable - Core Measures Any of the following diagnoses?: none Exam - Constitutional Vitals: Temp Pulse Resp BP Pulse Ox 98.7 F 64 16 110/47 97 02/13/22 04:41 02/13/22 04:41 02/13/22 04:41 02/13/22 04:41 02/13/22 04:41 General appearance: Present: no acute distress, well-nourished - EENT Eyes: Present: PERRL ENT: hearing intact, clear oral mucosa - Neck Neck: Present: supple, normal ROM - Respiratory Respiratory effort: normal Respiratory: bilateral: CTA - Cardiovascular Heart Sounds: Present: S1 & S2. Absent: rub, click - Extremities Extremities: pulses symmetrical, No edema Peripheral Pulses: within normal limits - Abdominal General gastrointestinal: Present: soft, non-tender, non-distended, normal bowel sounds Female genitourinary: Present: normal - Integumentary Integumentary: Present: clear, warm, dry - Musculoskeletal Musculoskeletal: gait normal, strength equal bilaterally - Psychiatric Psychiatric: appropriate mood/affect, intact judgment & insight - Neurologic Neurologic: CNII-XII intact, moves all extremities Plan Activity: advance as tolerated Weight Bearing Status: Weight Bear as Tolerated Diet: regular Follow up with: PRIMARY CAREMD [Primary Care Provider] - 7 Days
== END 2022-02-13 12:42 | disposition home or self-care (01) | DRG 871 ==
LOC: ED 18:30 → 3A 21:59
PROVIDERS: ADMIT Internal Medicine Geriatric Medicine; ATTEND Hospitalist
DX: A41.89 Other specified sepsis (principal); J96.01 Acute respiratory failure with hypoxia; R19.7 Diarrhea, unspecified; I95.9 Hypotension, unspecified; K52.89 Other specified noninfective gastroenteritis and colitis; Z20.822 Contact with and (suspected) exposure to COVID-19
CPT/HCPCS: 36415; 71045; 71275; 80048; 80053; 81001; 82140; 82550; 82728; 83615; 84145; 84484; 84702; 85025; 85379; 85730; 86140; 87040; 87086; 94760; G0378; J7517; J1100; J1644; J1956; J2405; J7030; Q9967; U0003